=== PATIENT | female | born 1995 | race Caucasian/White ===

== ENCOUNTER → 2017-06-11 | Outpatient (REF) | payer OTHER ==
[~2017-06-11] MED LIST: ANUS2.5C2 TOP; DOCU10CA PO; MOM30SS PO; MOTR200T44 PO; TYLE325T5 PO
== END ==
LOC: M SFHCLERA 20:17
PROVIDERS: ATTEND Nurse Practitioner Family
DX: R10.9 Unspecified abdominal pain (principal)

== ENCOUNTER → 2017-10-11 | Outpatient (REF) | payer OTHER ==
[2017-10-11 21:12] LABS: CHLAMYDIA DNA AMPLIFICATION NEGATIVE (NEGATIVE); GC DNA AMPLIFICATION NEGATIVE (NEGATIVE)
== END ==
LOC: M SFHCLERA 11:59
DX: R30.0 Dysuria (principal)

== ENCOUNTER 2017-10-19 17:10 | Emergency (ER) | payer OTHER ==
[2017-10-19] MEDS ORDERED: CYCLOBENZAPRINE 10 MG TAB PO ×2 (20:30)
[2017-10-19] MEDS: IBUPROFEN 600 MG TAB PO ×2 (20:30)
== END 2017-10-19 20:53 | disposition home or self-care (01) ==
LOC: M ED 17:10
DX: Z04.1 Encounter for examination and observation following transport accident (principal); S23.3XXA Sprain of ligaments of thoracic spine, initial encounter; S33.5XXA Sprain of ligaments of lumbar spine, initial encounter; V47.6XXA Car passenger injured in collision with fixed or stationary object in traffic accident, initial encounter; Y92.410 Unspecified street and highway as the place of occurrence of the external cause; F17.210 Nicotine dependence, cigarettes, uncomplicated
CPT/HCPCS: 72072

== ENCOUNTER → 2017-12-19 | Outpatient (CLI) | payer OTHER ==
[2017-12-19 12:32] LABS: HCG, SERUM QUANTITATIVE 186 MIU/ML
== END ==
LOC: M LAB 11:17
DX: N91.2 Amenorrhea, unspecified (principal)
CPT/HCPCS: 84702

== ENCOUNTER → 2017-12-21 | Outpatient (CLI) | payer OTHER ==
[2017-12-21 12:23] LABS: HCG, SERUM QUANTITATIVE 463 MIU/ML
== END ==
LOC: M LAB 11:37
DX: N91.2 Amenorrhea, unspecified (principal)
CPT/HCPCS: 84702

== ENCOUNTER → 2017-12-31 | Outpatient (CLI) | payer OTHER | LOC: M RAD 15:13 | DX: Z32.01 Encounter for pregnancy test, result positive (principal) | CPT/HCPCS: 76801 ==

== ENCOUNTER → 2018-01-06 | Outpatient (REF) | payer OTHER ==
[2018-01-06 18:11] LABS: AMPHETAMINES URINE REFLEX NEGATIVE (NEGATIVE); BARBITURATES URINE REFLEX NEGATIVE (NEGATIVE); BENZODIAZEPINES URINE REFLEX NEGATIVE (NEGATIVE); CANNABINOIDS URINE REFLEX NEGATIVE (NEGATIVE); COCAINE METABOLITE URINE REFLE NEGATIVE (NEGATIVE); METHADONE URINE REFLEX NEGATIVE (NEGATIVE); OPIATES URINE REFLEX NEGATIVE (NEGATIVE); PHENCYCLIDINE URINE REFLEX NEGATIVE (NEGATIVE)
[2018-01-07 00:10] LABS: CHLAMYDIA DNA AMPLIFICATION NEGATIVE (NEGATIVE); GC DNA AMPLIFICATION NEGATIVE (NEGATIVE)
== END ==
LOC: M SFHCCLAY 10:09
DX: N89.8 Other specified noninflammatory disorders of vagina (principal); F41.9 Anxiety disorder, unspecified; Z12.4 Encounter for screening for malignant neoplasm of cervix
CPT/HCPCS: 80307

== ENCOUNTER → 2018-01-08 | Outpatient (REF) | payer OTHER ==
[2018-01-08 20:26] LABS: AMPHETAMINES URINE REFLEX NEGATIVE (NEGATIVE); BARBITURATES URINE REFLEX NEGATIVE (NEGATIVE); BENZODIAZEPINES URINE REFLEX NEGATIVE (NEGATIVE); CANNABINOIDS URINE REFLEX NEGATIVE (NEGATIVE); COCAINE METABOLITE URINE REFLE NEGATIVE (NEGATIVE); METHADONE URINE REFLEX NEGATIVE (NEGATIVE); OPIATES URINE REFLEX NEGATIVE (NEGATIVE); PHENCYCLIDINE URINE REFLEX NEGATIVE (NEGATIVE)
[2018-01-09 09:15] LABS: CHLAMYDIA DNA AMPLIFICATION NEGATIVE (NEGATIVE); GC DNA AMPLIFICATION NEGATIVE (NEGATIVE)
[2018-01-09 10:37] LABS: HEPATITIS C VIRUS ABY INDEX < 0.0 INDEX (<0.8)
[2018-01-09 10:38] LABS: HEPATITIS B CORE ANTIBODY IGM NEGATIVE (NEGATIVE)
[2018-01-09 10:39] LABS: HIV 1&2 SCREEN CENTAUR NEGATIVE (NEGATIVE)
[2018-01-09 10:40] LABS: HEPATITIS A ANTIBODY IGM NEGATIVE (NEGATIVE)
[2018-01-09 10:48] LABS: HEPATITIS B SURFACE ANTIGEN NEGATIVE (NEGATIVE)
== END ==
LOC: M SFHCCLAY 11:16
DX: N89.8 Other specified noninflammatory disorders of vagina (principal); F41.9 Anxiety disorder, unspecified; Z12.4 Encounter for screening for malignant neoplasm of cervix; Z11.3 Encounter for screening for infections with a predominantly sexual mode of transmission; R30.0 Dysuria; Z3A.01 Less than 8 weeks gestation of pregnancy

== ENCOUNTER 2018-08-07 11:17 | Emergency (ER) | payer OTHER ==
[2018-08-07 11:56] LABS: KETONE, URINE AUTO RFX NEGATIVE (NEGATIVE); LEUKOCYTE ESTERASE UR AUTO RFX NEGATIVE (NEGATIVE); MUCUS, URINE RFX SMALL (NEGATIVE); NITRITE, URINE AUTO RFX NEGATIVE (NEGATIVE); RBC, URINE AUTO RFX 2 /HPF (0-3); SPECIFIC GRAVITY UR AUTO RFX 1.028 (1.002-1.035); SQUAM EPITHELIAL CELL UR AURFX 4 /HPF (0-6); WBC, URINE AUTO RFX 1 /HPF (0-3)
== END 2018-08-07 12:20 | disposition home or self-care (01) ==
LOC: M ED 11:17
DX: Z33.1 Pregnant state, incidental (principal)
CPT/HCPCS: 81001

== ENCOUNTER → 2018-11-16 | Outpatient (CLI) | payer OTHER ==
[~2018-11-16] MED LIST changes: +CYCL10TA PO; +IBUP-1022 PO; +MACR100C43 PO
== END ==
LOC: M LAB 13:13
PROVIDERS: ATTEND Obstetrics & Gynecology
DX: O20.0 Threatened abortion (principal); Z3A.00 Weeks of gestation of pregnancy not specified

== ENCOUNTER → 2018-11-18 | Outpatient (CLI) | payer OTHER | LOC: M LAB 15:42 | PROVIDERS: ATTEND Advanced Practice Midwife | DX: O20.0 Threatened abortion (principal); Z3A.00 Weeks of gestation of pregnancy not specified ==

== ENCOUNTER → 2018-11-24 | Outpatient (CLI) | payer OTHER | LOC: M LAB 13:13 | PROVIDERS: ATTEND Advanced Practice Midwife | DX: O20.0 Threatened abortion (principal); Z3A.00 Weeks of gestation of pregnancy not specified ==

== ENCOUNTER 2018-12-06 12:38 | Emergency (ER) | payer OTHER ==
[~2018-12-06] VITALS: Ht 160 cm; Wt 65.0 kg
[2018-12-06] MEDS ORDERED: PRENTAB55 PO (12:43)
[2018-12-06 13:30] LABS: BASO % 0.3 % (0.0-1.0); EOS # 0.1 10^3/uL (0.0-0.50); EOS % 0.6 % (0.0-3.0); HEMATOCRIT 38.7 % (36.0-47.0); HEMOGLOBIN 13.1 g/dl (12.0-15.5); MEAN CORPUSCULAR HEMOGLOBIN 30.2 pg (27.0-33.0); MEAN CORPUSCULAR HGB CONC 33.9 g/dl (32.0-36.5); MEAN CORPUSCULAR VOLUME 89.2 fl (80.0-96.0); MONO # 0.7 10^3/uL (0.0-0.8); MONO % 7.2 % (0.0-5.0); NEUTROPHILS # 6.7 10^3/uL (1.8-7.7); NEUTROPHILS % 70.7 % (36.0-66.0); PLATELET COUNT, AUTOMATED 313 10^3/uL (150-450); RED BLOOD COUNT 4.34 10^6/uL (4.00-5.40); WHITE BLOOD COUNT 9.5 10^3/uL (4.0-10.0)
[2018-12-06] MEDS ORDERED: NS 1,000 ML IV ONE (13:30)
[2018-12-06 13:56] LABS: BLOOD UREA NITROGEN 7 MG/DL (7-18); CALCIUM LEVEL 8.9 MG/DL (8.5-10.1); CARBON DIOXIDE LEVEL 27 MEQ/L (21-32); CHLORIDE LEVEL 105 MEQ/L (98-107); CREATININE FOR GFR 0.57 MG/DL (0.55-1.30); GLOMERULAR FILTRATION RATE > 60.0 (>60); GLUCOSE, FASTING 82 MG/DL (70-100); HCG, SERUM QUANTITATIVE 57581 MIU/ML; POTASSIUM SERUM 3.9 MEQ/L (3.5-5.1); SODIUM LEVEL 141 MEQ/L (136-145)
--- NOTE | 2018-12-06 14:43 | REP ---
Clinical: Pelvic pain and cramping. Dating and viability. Technique: Transabdominal first trimester obstetrical ultrasound with color Doppler evaluation Findings: Single live early intrauterine is appreciated. Gestational sac with yolk sac and pole identified. [place]-rump length of 1.1 cm corresponds to 7 weeks 1 day gestational age with estimated date of delivery 07/24/2019 . heart rate equals 128 beats per minute. No gross abnormalities are identified. Right corpus luteal cyst identified. Impression: Single live early intrauterine at 7 weeks 1 day gestational age. Complete anatomical assessment should be performed and 19-20 weeks. Electronically Signed by West Nation MD 12/06/2018 02:35 P
[2018-12-06 15:58] LABS: CHLAMYDIA DNA AMPLIFICATION NEGATIVE (NEGATIVE); GC DNA AMPLIFICATION NEGATIVE (NEGATIVE)
[2018-12-06] MEDS ORDERED: PYRI25TA2 PO (16:15)
[2018-12-06 16:22] VITALS: BP 113/56
== END 2018-12-06 16:56 | disposition home or self-care (01) ==
LOC: M ED 12:38
DX: O26.891 Other specified pregnancy related conditions, first trimester (principal); O99.89 Other specified diseases and conditions complicating pregnancy, childbirth and the puerperium; N94.10 Unspecified dyspareunia; Z3A.01 Less than 8 weeks gestation of pregnancy; O09.291 Supervision of pregnancy with other poor reproductive or obstetric history, first trimester; O98.511 Other viral diseases complicating pregnancy, first trimester; O99.331 Smoking (tobacco) complicating pregnancy, first trimester; F17.210 Nicotine dependence, cigarettes, uncomplicated

== ENCOUNTER → 2018-12-21 | Outpatient (CLI) | payer OTHER ==
[~2018-12-21] MED LIST changes: +PRENTAB55 PO; +PYRI25TA2 PO
[2018-12-21 13:41] LABS: BASO % 0.4 % (0.0-1.0); EOS % 0.5 % (0.0-3.0); HEMATOCRIT 36.7 % (36.0-47.0); HEMOGLOBIN 12.2 g/dl (12.0-15.5); LYMPH # 1.6 10^3/uL (1.5-6.5); LYMPH % 19.4 % (24.0-44.0); MEAN CORPUSCULAR HEMOGLOBIN 29.6 pg (27.0-33.0); MEAN CORPUSCULAR HGB CONC 33.2 g/dl (32.0-36.5); MEAN CORPUSCULAR VOLUME 89.1 fl (80.0-96.0); MONO # 0.5 10^3/uL (0.0-0.8); MONO % 5.9 % (0.0-5.0); NEUTROPHILS % 73.6 % (36.0-66.0); PLATELET COUNT, AUTOMATED 262 10^3/uL (150-450); RED BLOOD COUNT 4.12 10^6/uL (4.00-5.40); WHITE BLOOD COUNT 8.1 10^3/uL (4.0-10.0)
[2018-12-21 14:26] LABS: HEPATITIS C VIRUS ABY INDEX 0.1 INDEX (<0.8); HIV 1&2 SCREEN CENTAUR NEGATIVE (NEGATIVE); RUBELLA IgG QUALITATIVE IMMUNE (IMMUNE)
[2018-12-21 14:41] LABS: CHLAMYDIA DNA AMPLIFICATION NEGATIVE (NEGATIVE); GC DNA AMPLIFICATION NEGATIVE (NEGATIVE)
== END ==
LOC: M SMT 10:31
PROVIDERS: ATTEND Advanced Practice Midwife
DX: Z3A.09 9 weeks gestation of pregnancy (principal); Z34.81 Encounter for supervision of other normal pregnancy, first trimester

== ENCOUNTER → 2019-02-23 | Outpatient (CLI) | payer OTHER ==
--- NOTE | 2019-02-23 10:59 | REP ---
OBSTETRIC SONOGRAPHY: HISTORY: Supervision of . For anatomy. FINDINGS: Scanning through the gravid uterus demonstrates a viable single intrauterine gestation in a variable lie. motion is observed and heart rate is recorder 157 beats per minute. An anterior grade 0 placenta is seen without evidence of previa or abruption. Amniotic fluid is subjectively normal. Closed cervical length is 4.6 cm measured transabdominally. No extrauterine abnormalities observed. There has been appropriate interval growth. There are small bilateral choroid plexus cysts. No other anomaly is seen. Left ventricular cardiac outflow tract view and spine are less than optimally seen due to position. The following additional anatomic structures are identified and felt to be unremarkable: cranium, cavum, cerebellum and posterior fossa, face and profile, lungs, four-chamber heart with right ventricular outflow tract view, diaphragm, left-sided stomach, abdominal wall cord insertion, three-vessel cord, kidneys and bladder, upper and lower extremities. Biometry Chart: BPD 3.8 cm = 17 weeks 5 days HC 15.3 cm = 18 weeks 2 days AC 13.0 cm = 18 weeks 4 days FL 2.7 cm = 18 weeks 2 days HL 2.7 cm = 18 weeks 4 days HC/AC ratio normal 1.18. Cephalic index 0.67 (0.70-0.86). Estimated weight 239 grams, 0 pounds 8 ounces, 47th percentile for 18 weeks 3 days. IMPRESSION: Viable single intrauterine gestation at 18 weeks 2 days by today's composite sonographic criteria. Expected gestational age estimate based on prior sonography is 18 weeks 3 days. WILIAM by prior sonography July 24, 2019. left ventricular cardiac outflow tract and spine views less than optimal today due to position. Small bilateral choroid plexus cysts are seen. Electronically Signed by Moose Shen MD 02/23/2019 12:26 P
== END ==
LOC: M RAD 09:16
PROVIDERS: ATTEND Obstetrics & Gynecology
DX: Z34.82 Encounter for supervision of other normal pregnancy, second trimester (principal); Z3A.18 18 weeks gestation of pregnancy

== ENCOUNTER → 2019-03-25 | Outpatient (REF) | payer OTHER ==
[~2019-03-25] MED LIST changes: +ACET1TAB55 PO
== END ==
LOC: M LAB REF 12:49
PROVIDERS: ATTEND Advanced Practice Midwife
DX: Z34.82 Encounter for supervision of other normal pregnancy, second trimester (principal)

== ENCOUNTER → 2019-04-22 | Outpatient (CLI) | payer OTHER ==
[2019-04-22 13:31] LABS: HEMATOCRIT 34.8 % (36.0-47.0); HEMOGLOBIN 11.5 g/dl (12.0-15.5); MEAN CORPUSCULAR HEMOGLOBIN 30.7 pg (27.0-33.0); MEAN CORPUSCULAR VOLUME 92.8 fl (80.0-96.0); PLATELET COUNT, AUTOMATED 272 10^3/uL (150-450); RED BLOOD COUNT 3.75 10^6/uL (4.00-5.40); WHITE BLOOD COUNT 8.6 10^3/uL (4.0-10.0)
== END ==
LOC: M SMT 11:03
PROVIDERS: ATTEND Advanced Practice Midwife
DX: O99.332 Smoking (tobacco) complicating pregnancy, second trimester (principal); Z3A.00 Weeks of gestation of pregnancy not specified

== ENCOUNTER → 2019-06-25 | Outpatient (REF) | payer OTHER | LOC: M LAB REF 16:52 | PROVIDERS: ATTEND Advanced Practice Midwife | DX: Z36.85 Encounter for antenatal screening for Streptococcus B (principal); O99.333 Smoking (tobacco) complicating pregnancy, third trimester ==

== ENCOUNTER → 2019-06-25 | Outpatient (CLI) | payer OTHER | LOC: M SMT 14:31 | PROVIDERS: ATTEND Advanced Practice Midwife | DX: O99.333 Smoking (tobacco) complicating pregnancy, third trimester (principal) ==

== ENCOUNTER 2019-07-13 18:11 | Outpatient (CLI) | payer OTHER ==
[~2019-07-13] VITALS: Ht 162.6 cm; Wt 66.2 kg
[2019-07-13 18:22] VITALS: BP 119/70
== END 2019-07-13 19:22 | disposition home or self-care (01) ==
LOC: M LDO 18:11
PROVIDERS: ATTEND Obstetrics & Gynecology
DX: O36.8130 Decreased fetal movements, third trimester, not applicable or unspecified (principal); Z3A.38 38 weeks gestation of pregnancy

== ENCOUNTER 2019-07-16 22:21 | Outpatient (CLI) | payer OTHER ==
[~2019-07-16] VITALS: Ht 162.6 cm; Wt 68.0 kg
[2019-07-16 22:37] VITALS: BP 125/67
[2019-07-17 00:04] VITALS: BP 136/80
[2019-07-17 00:43] VITALS: BP 129/80
--- NOTE | 2019-07-17 00:46 | IPNPDOC ---
Text Note Date of Service The patient was seen on 07/17/19. NOTE Outpatient 24yo WILIAM 07/24/19. Presents @ 38w6d with complaints of UC since office appt today. Denies LOF or bleeding. Fetus is active NAD UC irregular, mild FH Cat I Cervix remained unchanged 380/-1 over 2 hours, similar to earlier office exam Discharged home. Routine precautions. Keep next appt VS,Fishbone, I+O VS, Fishbone, I+O Vital Signs Date Time Temp Pulse Resp B/P (MAP) Pulse Ox O2 Delivery O2 Flow Rate FiO2 07/16/19 22:37 98.6 86 125/67 (86) Chary Vergara CNM Jul 17, 2019 00:46
[2019-07-17] MEDS ORDERED: ACETAMINOPHEN 500 MG TAB PO ONE (01:00)
[2019-07-17 01:28] LABS: AMPHETAMINES URINE REFLEX NEGATIVE (NEGATIVE); BARBITURATES URINE REFLEX NEGATIVE (NEGATIVE); BENZODIAZEPINES URINE REFLEX NEGATIVE (NEGATIVE); CANNABINOIDS URINE REFLEX NEGATIVE (NEGATIVE); COCAINE METABOLITE URINE REFLE NEGATIVE (NEGATIVE); METHADONE URINE REFLEX NEGATIVE (NEGATIVE)
[2019-07-17 01:29] LABS: OPIATES URINE REFLEX NEGATIVE (NEGATIVE); PHENCYCLIDINE URINE REFLEX NEGATIVE (NEGATIVE)
[2019-07-18] MEDS ORDERED: IBUP80TA PO (08:57)
[2019-07-18] MEDS ORDERED: ACET-683 PO (08:57)
== END 2019-07-17 01:05 | disposition home or self-care (01) ==
LOC: M LDO 22:21
PROVIDERS: ATTEND Advanced Practice Midwife
DX: O47.1 False labor at or after 37 completed weeks of gestation (principal); Z3A.38 38 weeks gestation of pregnancy

== ENCOUNTER 2019-07-17 10:23 | Inpatient (IN) | payer OTHER ==
[~2019-07-17] VITALS: Ht 160 cm; Wt 68.0 kg
[2019-07-17] VITALS (7 sets, daily range): BP systolic 112–136; BP diastolic 58–78
[2019-07-17] MEDS ORDERED: LR 1,000 ML IV SCH (10:38)
[2019-07-17] MEDS ORDERED: LACTATED RINGER'S 1000 ML IV STA (10:38)
[2019-07-17] MEDS ORDERED: OXYTOCIN 30 UNITS IN 0.9% NaCl 500ML IV BAG (J2590) As Ordered ONE (10:47)
[2019-07-17 11:24] LABS: HEMATOCRIT 37.7 % (36.0-47.0); HEMOGLOBIN 12.3 g/dl (12.0-15.5); MEAN CORPUSCULAR HEMOGLOBIN 30.3 pg (27.0-33.0); MEAN CORPUSCULAR HGB CONC 32.6 g/dl (32.0-36.5); MEAN CORPUSCULAR VOLUME 92.9 fl (80.0-96.0); PLATELET COUNT, AUTOMATED 279 10^3/uL (150-450); RED BLOOD COUNT 4.06 10^6/uL (4.00-5.40); WHITE BLOOD COUNT 15.8 10^3/uL (4.0-10.0)
[2019-07-17] MEDS ORDERED: OXYTOCIN DRIP 30 UNITS in IV 1 EA IV SCH (11:37)
[2019-07-17] MEDS ORDERED: ANUSOL HC CREAM 30GM TOP PRN (11:45)
[2019-07-17] MEDS ORDERED: RHOGAM 300 MCG (1500 IU) INJ (J2790) IM SCH (11:45)
[2019-07-17] MEDS ORDERED: ACETAMINOPHEN TAB 650MG DOSE (2X325MG) PO PRN (11:45)
[2019-07-17] MEDS ORDERED: MOM 30ML SUSPENSION UDC PO PRN (11:45)
[2019-07-17] MEDS ORDERED: DIBUCAINE 1% OINTMENT 30GM TOP PRN (11:45)
[2019-07-17] MEDS ORDERED: IBUPROFEN 600 MG TAB PO PRN (11:45)
[2019-07-17] MEDS ORDERED: METHYLERGONOVINE MALEATE 0.2 MG TAB PO PRN (11:45)
[2019-07-17] MEDS ORDERED: DOCUSATE SODIUM 100 MG CAP PO PRN (11:45)
[2019-07-17] MEDS ORDERED: MEASLES,MUMPS,RUBELLA VACCINE INJ (MMR-II) (90707) SC SCH (11:45)
--- NOTE | 2019-07-17 11:51 | HPEPDOC ---
Obstetrical History & Physical General Date of Admission Jul 17, 2019 at 10:35 History of Present Illness Chief Complaint: Contractions, term, LOF, term Information Provided By: Patient Age: 24 : 5 Term: 2 Pre-term: 0 Abortions: 2 Livin Care Care: Good Care Dating Final EDC: Jul 24, 2019 Final EDC by: LMP EGA at Admission: 39 Antepartum Course Height (inches): 64 Pre- weight (lbs.): 140 Admission Weight (lbs.): 150 Past Medical History Past Obstetrical History #1: Past Obstetrical History: Primgravida (2013) Type of Delivery: Spontaneous Vaginal Del. Sex of : Female (7#5) Complications: No Past Obstetrical History #2: Past Obstetrical History: Multigravida (2015) Type of Delivery: Spontaneous Vaginal Del. 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 , Theraputic Past Medical History Surgical History: Appendectomy Family History Significant Family History: Diabetes, Hypertension Social History Marital Status: Family situation: Spouse/partner home * Smoker: current smoker (1/2 ppd) Alcohol: Denies Drugs: denies Abuse Violence Screening Have you been hit/kicked/slapp: No Have you been sexually assault: No Imunizations Influenza Status: declined Allergies Coded Allergies: No Known Allergies (Unverified , 08/07/18) Medications Scheduled [id number]/Iron Fum/Folic/Docusate ( 19 Tablet) 1 Tab Tab, 1 TAB PO DAILY Physical Examination Physical Examination GENERAL: Alert and oriented times three. BREAST: . ABDOMEN: Gravid and non-tender to touch. FETUS: Is vertex (VTX) by sterile vaginal examination (SVE), fetus is vertex (VTX) by Memo. HEART RATE: Regular rate and rhythm. LUNGS: Clear to auscultation (CTA). EXTREMITIES: No edema. No clonus. Deep tendon reflexes (DTRs) + 2. Vital Signs/I&O Vital Signs Date Time Temp Pulse Resp B/P (MAP) Pulse Ox O2 Delivery O2 Flow Rate FiO2 07/17/19 10:27 97.9 93 20 136/78 (97) Laboratory Data 24H LABS Laboratory Tests 2 07/17/19 10:43: Nucleated Red Blood Cells % (auto) 0.0 07/17/19 10:52: Serology Scanned Report Hepatitis B Testing CBC/BMP Laboratory Tests 07/17/19 10:43 Pertinent Laboratoy Data Blood Type: A+ RBC Antibody Screen: Negative HIV: Negative Hepatitis B: Negative Hepatitis C: Negative Rapid Plasma Reagin: Nonreactive Rubella: Immune Chlamydia/Gonorrhea: Negative Group B Streptococcus: Negative Quad Screen Test: Declined Glucose Tolerance Test: 115 Anatomy Ultrasound Ultrasound Date: Feb 23, 2019 Placenta Location: Anterior Normal Anatomy: Yes Placenta Previa: No Estimated Weight (grams): 239 (47%) Other Ultrasounds 12/06/18 ED 7w1d WILIAM 07/24/19 03/30/19 f/u 566gm, 37% Steroid Therapy Steroid Therapy: No Vaginal Examination Dilation: 6 cm (per nursing) Assessment Heart Rate (FHR): 135 Variability: Moderate Accelerations: Positive Tocometer Contractions: Yes Frequency: regular, every 2-5 min. Duration: greater than 60 seconds Assessment/Plan Assessment Jaquelin is a 24-year-old (G)5 para (P)2-0-2-2 at 39+0 weeks by 7-week ultrasound. Presents to Labor and Delivery (L&D) in active labor. Reports SROM clear fluid 1000. Plan Admit and orient. Applications Support Lead and consent. Diet: clear. Group B Streptococcus (GBS) negative. Labs and intravenous (IV) per unit protocol. Counseled on Pitocin and induction of labor (IOL). Lactated Ringers (LR): Bolus 500 mL, then saline lock. Anticipate normal spontaneous delivery (). C-S as appropriate. Chary Vergara CNM Jul 17, 2019 11:51
--- NOTE | 2019-07-17 11:57 | DNPDOC ---
[facility] Delivery Note Delivery Note DATE OF DELIVERY: 07/17/19 PREDELIVERY DIAGNOSIS: 39-0/7 weeks' gestation and labor. POST DELIVERY DIAGNOSIS: Delivered. PROCEDURE: Spontaneous vaginal delivery. PROVIDER: Chary Vergara CNM ANESTHESIA: None. ESTIMATED BLOOD LOSS: 200 mL. FINDINGS: 7 pound 6 ounce, 3350gm male , Score 9/9, no nuchal cord. DELIVERY SUMMARY: Patient is a 24-year-old 5 now para 3-0-2-3 who was admitted to labor and delivery for active labor. She reports waking with contractions at 0800 followed by SROM clear fluid 1000. Upon admission, nursing exam was 6cm. She progressed regularly. FD 1116. Viable male delivered TIFFANY without difficulty @ 1117. Spontaneous respirations, transitioned on maternal abdomen. Cord doubly clamped and cut by FOB once pulsations ceased. Apgars 9/9. Placenta fernández, intact with 3v cord @ 1124. Fundus firmed with massage and IV pitocin bolus. EBL 200ml. Cervix, vagina and perineum intact. Sponge sharp and instrument count correct. Chary Vergara CNM Jul 17, 2019 11:57
[2019-07-17] MEDS ORDERED: SLF 3 ML SYR IV PRN (13:00)
[2019-07-17] MEDS: SLF 3 ML SYR IV SCH ×2 (14:00→22:00)
[2019-07-17] MEDS: IBUPROFEN 800 MG TAB PO PRN (17:41)
[2019-07-17] MEDS: ACETAMINOPHEN 500 MG TAB PO PRN (20:49)
[2019-07-18] MEDS: IBUPROFEN 800 MG TAB PO PRN ×2 (02:12→15:28)
[2019-07-18 06:00] VITALS: BP 119/64
[2019-07-18] MEDS: SLF 3 ML SYR IV SCH ×2 (06:00→14:00)
[2019-07-18] MEDS: ACETAMINOPHEN 500 MG TAB PO PRN (08:01)
[2019-07-18] MEDS ORDERED: ACET-683 PO (08:57)
[2019-07-18] MEDS ORDERED: IBUP80TA PO (08:57)
[2019-07-18] MEDS ORDERED: PRENATAL VITAMINS CHEWABLE TABLET PO SCH ×2 (09:00)
[2019-07-18] MEDS ORDERED: ADACEL/BOOSTRIX VACCINE (DIPHTH/PERTUSS/ACELL/TETANUS)0.5ML SYR (90715) IM ONE (17:45)
[2019-07-18 18:00] VITALS: BP 116/69
== END 2019-07-18 20:40 | disposition home or self-care (01) | DRG 560 ==
LOC: M LDO 10:23 → M LDI 10:35 → M OBS 14:49
PROVIDERS: ADMIT Advanced Practice Midwife; ATTEND Advanced Practice Midwife
PROC: 10E0XZZ Delivery of Products of Conception, External Approach (ICD-10-PCS; principal; 2019-07-17)
DX: O99.334 Smoking (tobacco) complicating childbirth (principal); F17.210 Nicotine dependence, cigarettes, uncomplicated; Z3A.39 39 weeks gestation of pregnancy; Z37.0 Single live birth

== ENCOUNTER → 2021-12-18 | Outpatient (CLI) | payer OTHER ==
[~2021-12-18] MED LIST changes: +ACET-683 PO; +CYCL-707 PO; -CYCL10TA PO; +IBUP80TA PO
== END ==
LOC: M PLALAB 09:35
PROVIDERS: ATTEND Obstetrics & Gynecology
DX: Z34.81 Encounter for supervision of other normal pregnancy, first trimester (principal); Z36.89 Encounter for other specified antenatal screening

== ENCOUNTER → 2022-02-07 | Outpatient (CLI) | payer OTHER | LOC: M WHC 12:54 | PROVIDERS: ATTEND Advanced Practice Midwife | DX: O32.1XX0 Maternal care for breech presentation, not applicable or unspecified (principal); Z3A.19 19 weeks gestation of pregnancy ==

== ENCOUNTER → 2022-03-28 | Outpatient (CLI) | payer OTHER | LOC: M WHC 09:50 | PROVIDERS: ATTEND Specialist | DX: Z34.82 Encounter for supervision of other normal pregnancy, second trimester (principal); Z36.2 Encounter for other antenatal screening follow-up; Z3A.26 26 weeks gestation of pregnancy ==

== ENCOUNTER → 2022-06-03 | Outpatient (CLI) | payer OTHER | LOC: M WHC 12:39 | PROVIDERS: ATTEND Advanced Practice Midwife | DX: Z36.2 Encounter for other antenatal screening follow-up (principal); O26.843 Uterine size-date discrepancy, third trimester; Z3A.35 35 weeks gestation of pregnancy ==

== ENCOUNTER → 2022-06-07 | Outpatient (REF) | payer OTHER, MEDICAID | LOC: M SFHCWAGY 15:04 | PROVIDERS: ATTEND Advanced Practice Midwife | DX: Z34.93 Encounter for supervision of normal pregnancy, unspecified, third trimester (principal); Z36.85 Encounter for antenatal screening for Streptococcus B ==

== ENCOUNTER 2024-02-21 20:04 | Inpatient (IN) | payer MEDICAID, OTHER ==
[~2024-02-21] VITALS: Ht 167.6 cm; Wt 56.0 kg
[~2024-02-21 20:04] MED LIST changes: +METH10CO3 PO
[2024-02-21] MEDS: NS 1,000 ML IV ONE (20:10)
[2024-02-21 20:29] LABS: BASO % 0.3 % (0.0-1.0); EOS # 0.1 10^3/uL (0.0-0.5); EOS % 1.7 % (0.0-3.0); HEMATOCRIT 39.9 % (36.0-47.0); HEMOGLOBIN 13.7 g/dl (12.0-15.5); LYMPH # 1.9 10^3/uL (1.5-5.0); LYMPH % 24.6 % (24.0-44.0); MEAN CORPUSCULAR HEMOGLOBIN 28.8 pg (27.0-33.0); MEAN CORPUSCULAR HGB CONC 34.3 g/dl (32.0-36.5); MEAN CORPUSCULAR VOLUME 83.8 fl (80.0-96.0); MONO # 0.7 10^3/uL (0.0-0.8); MONO % 9.6 % (2.0-8.0); NEUTROPHILS # 4.8 10^3/uL (1.5-8.5); NEUTROPHILS % 63.5 % (36.0-66.0); PLATELET COUNT, AUTOMATED 313 10^3/uL (150-450); RED BLOOD COUNT 4.76 10^6/uL (4.00-5.40); WHITE BLOOD COUNT 7.6 10^3/uL (4.0-10.0)
[2024-02-21] MEDS: LORazepam 2 MG/ML 1ML VIAL IV STA ×2 (20:42→22:11)
[2024-02-21 20:57] LABS: ETHYL ALCOHOL (ETHANOL) 0.004 % (0.000-0.010)
[2024-02-21 20:59] LABS: ALKALINE PHOSPHATASE 90 U/L (46-116); ALT/SGPT 24 U/L (7.0-40); AST/SGOT 22 U/L (<34); BILIRUBIN,DIRECT 0.1 MG/DL (<0.4); BILIRUBIN,TOTAL 0.4 MG/DL (0.3-1.2); BLOOD UREA NITROGEN 15 MG/DL (9-23); CALCIUM LEVEL 9.1 MG/DL (8.5-10.1); CARBON DIOXIDE LEVEL 26 MMOL/L (20-31); CHLORIDE LEVEL 110 MMOL/L (98-107); CREATININE FOR GFR 0.61 MG/DL (0.55-1.30); GLOMERULAR FILTRATION RATE > 60.0 (>60); GLUCOSE, FASTING 107 MG/DL (60-100); POTASSIUM SERUM 4.2 MMOL/L (3.5-5.1); SALICYLATE LEVEL < 3.0 MG/DL (<30); SODIUM LEVEL 145 MMOL/L (136-145); TOTAL PROTEIN 7.3 G/DL (5.7-8.2)
[2024-02-21 21:01] LABS: THYROID STIMULATING HORMONE 0.397 uIU/ML (0.55-4.78)
[2024-02-21 21:02] LABS: CPK CREATINE PHOSPHOKINASE 264 U/L (34-145)
[2024-02-21 21:20] LABS: BARBITURATES URINE NEGATIVE (NEGATIVE)
[2024-02-21 21:21] LABS: BENZODIAZEPINES URINE NEGATIVE (NEGATIVE); CANNABINOIDS URINE NEGATIVE (NEGATIVE); COCAINE METABOLITE URINE NEGATIVE (NEGATIVE); METHADONE URINE NEGATIVE (NEGATIVE); OPIATES URINE NEGATIVE (NEGATIVE); PHENCYCLIDINE URINE NEGATIVE (NEGATIVE)
[2024-02-21 21:23] LABS: AMPHETAMINES LEVEL URINE POSITIVE (NEGATIVE)
[2024-02-22 00:36] LABS: HCG, SERUM QUALITATIVE NEGATIVE (NEGATIVE)
[2024-02-22] MEDS: LORazepam 2 MG/ML 1ML VIAL IV STA (08:17)
[2024-02-22] MEDS: NICOTINE 21MG/24HR 1 EA TRANSDERMAL TD ONE (10:20)
[2024-02-22] MEDS ORDERED: HALOPERIDOL LACTATE 5MG/ML VIAL As Ordered ONE (19:26)
[2024-02-22] MEDS: LORazepam 2 MG/ML 1ML VIAL IM ONE (19:36)
[2024-02-22] MEDS: HALOPERIDOL LACTATE 5MG/ML VIAL IM ONE (19:37)
[2024-02-22] MEDS: diphenhydrAMINE 50MG/ML VIAL IM ONE (19:37)
[2024-02-22] MEDS ORDERED: MED REC CURRENTLY UNOBTAINABLE XX SCH (21:45)
[2024-02-23] MEDS ORDERED: HOME MED LIST COMPLETE! XX SCH (07:40)
[2024-02-23] MEDS ORDERED: ACETAMINOPHEN TAB 650MG DOSE (2X325MG) PO PRN (13:45)
[2024-02-23] MEDS ORDERED: IBUPROFEN 400MG TAB PO PRN (13:45)
[2024-02-23] MEDS ORDERED: MAALOX 30 ML SUSP *UDC PO PRN (13:45)
[2024-02-23] MEDS ORDERED: LORazepam 2 MG TAB PO PRN (13:45)
[2024-02-23] MEDS ORDERED: OLANZapine 5 MG TAB PO PRN (13:45)
[2024-02-23] MEDS ORDERED: MOM 30ML SUSPENSION UDC PO PRN (13:45)
[2024-02-23 15:57] VITALS: BP 114/81
[2024-02-23] MEDS: NICOTINE 21MG/24HR 1 EA TRANSDERMAL TD SCH (16:35)
[2024-02-23] MEDS: FOLIC ACID 1MG TAB PO SCH (17:12)
[2024-02-23] MEDS: THIAMINE 100 MG TAB PO SCH (17:12)
[2024-02-23] MEDS: MULTIVITAMINS/MINERALS THERAP 1 TAB PO SCH (17:12)
[2024-02-23] MEDS: traZODone 50 MG TAB PO PRN (21:27)
[2024-02-23 23:46] VITALS: BP 115/82
[2024-02-24] MEDS: diphenhydrAMINE 25MG CAP PO PRN (09:24)
[2024-02-24 18:17] VITALS: BP 116/85; TEMP 98.6
[2024-02-25] VITALS (10 sets, daily range): BP systolic 123–139; BP diastolic 76–91; TEMP 97.1–99.2; O2SAT 97–100
[2024-02-25 07:23] LABS: CHOLESTEROL RISK RATIO 3.36 (<5); HDL CHOLESTEROL 46.4 MG/DL (>40); NON-HDL-C 109.6 MG/DL
[2024-02-25] MEDS ORDERED: OLANZapine 2.5MG TABLET PO PRN (09:40)
[2024-02-25] MEDS: LORazepam 1 MG TAB PO SCH (10:46)
[2024-02-25] MEDS: chlorproMAZINE INJ 50MG/2ML AMP IM STA (11:30)
[2024-02-25] MEDS ORDERED: LORazepam 1 MG TAB PO SCH (16:00)
[2024-02-26 06:23] VITALS: BP 124/67; TEMP 99.4; O2SAT 100
== END 2024-02-26 14:05 | disposition short-term general hospital (02) | DRG 776 ==
LOC: M ED 20:04 → EDBD 20:04 → M ED INP 02-23 13:43 → M PSY 02-23 15:51
PROVIDERS: ADMIT Student in an Organized Health Care Education/Training Program; ATTEND Student in an Organized Health Care Education/Training Program
DX: F15.150 Other stimulant abuse with stimulant-induced psychotic disorder with delusions (principal); Z78.1 Physical restraint status; Z62.810 Personal history of physical and sexual abuse in childhood; F41.9 Anxiety disorder, unspecified; Z87.891 Personal history of nicotine dependence; R00.8 Other abnormalities of heart beat

== ENCOUNTER 2024-02-26 12:41 | Observation (INO) | payer MEDICAID, OTHER ==
[2024-02-26 14:00] VITALS: BP 101/59; TEMP 97.4; O2SAT 98
[2024-02-26] MEDS ORDERED: HOME MED LIST COMPLETE! XX SCH (14:20)
[2024-02-26 14:40] LABS: HEMATOCRIT 45.4 % (36.0-47.0); HEMOGLOBIN 15.4 g/dl (12.0-15.5); MEAN CORPUSCULAR HEMOGLOBIN 28.2 pg (27.0-33.0); MEAN CORPUSCULAR HGB CONC 33.9 g/dl (32.0-36.5); PLATELET COUNT, AUTOMATED 308 10^3/uL (150-450); RED BLOOD COUNT 5.47 10^6/uL (4.00-5.40); WHITE BLOOD COUNT 8.2 10^3/uL (4.0-10.0)
[2024-02-26 15:12] LABS: BLOOD UREA NITROGEN 17 MG/DL (9-23); CALCIUM LEVEL 9.4 MG/DL (8.5-10.1); CARBON DIOXIDE LEVEL 28 MMOL/L (20-31); CHLORIDE LEVEL 103 MMOL/L (98-107); CREATININE FOR GFR 0.61 MG/DL (0.55-1.30); GLOMERULAR FILTRATION RATE > 60.0 (>60); GLUCOSE, FASTING 123 MG/DL (60-100); SODIUM LEVEL 138 MMOL/L (136-145)
[2024-02-26] MEDS: OLANZapine INTRAMUSCULAR 10MG VIAL IM ONE (15:49)
[2024-02-26] MEDS ORDERED: NS 1,000 ML IV SCH (16:00)
[2024-02-26 16:04] VITALS: BP 119/78; TEMP 96.5; O2SAT 98
[2024-02-26 16:11] VITALS: BP 162/72; TEMP 97.5; O2SAT 96
[2024-02-26] MEDS: NS 1,000 ML IV ONE ×2 (17:37→18:17)
[2024-02-26 20:00] VITALS: BP 134/71; TEMP 97.5; O2SAT 96
[2024-02-27] VITALS: BP 129/73; TEMP 98.1; O2SAT 98
[2024-02-27] MEDS: OLANZapine INTRAMUSCULAR 10MG VIAL IM ONE ×2 (02:17→03:34)
[2024-02-27] MEDS: diphenhydrAMINE 25MG CAP PO ONE (03:26)
[2024-02-27 04:00] VITALS: BP 132/91; TEMP 97.3; O2SAT 100
[2024-02-27] MEDS: LORazepam 2 MG/ML 1ML VIAL IV STA ×2 (04:13→04:49)
[2024-02-27 08:42] VITALS: BP 136/84; TEMP 97.5; O2SAT 100
[2024-02-27] MEDS: ENOXAPARIN 40MG/0.4ML SYRINGE (J1650 PER 10MG) SC SCH (09:00)
[2024-02-27 09:25] LABS: BLOOD UREA NITROGEN 9 MG/DL (9-23); CALCIUM LEVEL 8.9 MG/DL (8.5-10.1); CARBON DIOXIDE LEVEL 26 MMOL/L (20-31); CHLORIDE LEVEL 112 MMOL/L (98-107); CREATININE FOR GFR 0.54 MG/DL (0.55-1.30); GLOMERULAR FILTRATION RATE > 60.0 (>60); GLUCOSE, FASTING 89 MG/DL (60-100); POTASSIUM SERUM 4.3 MMOL/L (3.5-5.1); SODIUM LEVEL 142 MMOL/L (136-145)
[2024-02-27 09:28] LABS: HEMATOCRIT 40.1 % (36.0-47.0); MEAN CORPUSCULAR HEMOGLOBIN 28.2 pg (27.0-33.0); MEAN CORPUSCULAR HGB CONC 33.2 g/dl (32.0-36.5); MEAN CORPUSCULAR VOLUME 85.1 fl (80.0-96.0); PLATELET COUNT, AUTOMATED 260 10^3/uL (150-450); RED BLOOD COUNT 4.71 10^6/uL (4.00-5.40); WHITE BLOOD COUNT 5.6 10^3/uL (4.0-10.0)
[2024-02-27 09:44] LABS: HEMOGLOBIN 13.3 g/dl (12.0-15.5)
== END 2024-02-27 11:14 | disposition left against medical advice (07) ==
LOC: M PCU 13:39
PROVIDERS: ADMIT Internal Medicine; ATTEND Internal Medicine
DX: R00.0 Tachycardia, unspecified (principal); Z53.8 Procedure and treatment not carried out for other reasons; F29 Unspecified psychosis not due to a substance or known physiological condition; F19.10 Other psychoactive substance abuse, uncomplicated
CPT/HCPCS: 36415; 80048; 81001; 84439; 85027; 87086; 96372; 96374; 96376; J2060; J2359

== ENCOUNTER 2024-02-27 11:16 | Inpatient (IN) | payer MEDICAID, OTHER ==
[~2024-02-27] VITALS: Ht 162.6 cm; Wt 54.4 kg
[2024-02-27] MEDS ORDERED: HOME MED LIST COMPLETE! XX SCH (11:55)
[2024-02-27] MEDS ORDERED: IBUPROFEN 400MG TAB PO PRN (12:50)
[2024-02-27] MEDS ORDERED: MAALOX 30 ML SUSP *UDC PO PRN (12:50)
[2024-02-27] MEDS ORDERED: MOM 30ML SUSPENSION UDC PO PRN (12:50)
[2024-02-27] MEDS ORDERED: LORazepam 2 MG TAB PO PRN (12:50)
[2024-02-27] MEDS: THIAMINE 100 MG TAB PO SCH (14:16)
[2024-02-27] MEDS: FOLIC ACID 1MG TAB PO SCH (14:16)
[2024-02-27] MEDS: NICOTINE 14 MG/24 HR TRANSDERMAL TD SCH (14:16)
[2024-02-27] MEDS: MULTIVITAMINS/MINERALS THERAP 1 TAB PO SCH (14:17)
[2024-02-27] MEDS: ACETAMINOPHEN TAB 650MG DOSE (2X325MG) PO PRN (23:49)
[2024-02-28] MEDS: traZODone 50 MG TAB PO PRN
[2024-02-28 06:00] VITALS: BP 122/77
[2024-02-28 06:25] VITALS: BP 122/77; TEMP 98.3; O2SAT 97
[2024-02-28 15:03] VITALS: BP 130/76
[2024-02-28 15:04] VITALS: BP 130/76; TEMP 98.2; O2SAT 98
[2024-02-29 06:11] VITALS: BP 127/68; TEMP 98.6; O2SAT 95
[2024-02-29] MEDS: OLANZapine 5 MG TAB PO SCH (08:11)
[2024-02-29] MEDS: VITAMIN D 1,000 INTERNATIONAL UNITS TABLET PO SCH (08:11)
[2024-02-29] MEDS: NICOTINE POLACRILEX 2 MG GUM PO PRN (09:58)
[2024-02-29 15:18] VITALS: BP 122/85; TEMP 98.6; O2SAT 97
[2024-03-01 03:25] LABS: Trichomonas vaginalis (AMP) POSITIVE (NEGATIVE)
[2024-03-01 03:54] LABS: GC DNA AMPLIFICATION NEGATIVE (NEGATIVE)
[2024-03-01 17:49] VITALS: BP 122/75; TEMP 98.4; O2SAT 97
[2024-03-01] MEDS: rOPINIRole 0.25 MG TAB(REQUIP) PO PRN (18:35)
[2024-03-02 06:10] VITALS: BP 114/68; TEMP 99.1; O2SAT 95
[2024-03-02] MEDS ORDERED: NICO2GUM PO (09:57)
[2024-03-02] MEDS ORDERED: TRAZ-252 PO (09:57)
[2024-03-02] MEDS ORDERED: VITAD1000T PO (09:57)
[2024-03-02] MEDS ORDERED: HALO5TAB33 PO (09:57)
[2024-03-02] MEDS ORDERED: OLAN1TAB16 PO (09:57)
[2024-03-02] MEDS ORDERED: ROPI25TA PO (09:57)
[2024-03-02] MEDS ORDERED: NICO4GUM43 MT (10:35)
== END 2024-03-02 11:34 | disposition home or self-care (01) | DRG 776 ==
LOC: M ED 11:16 → M ED INP 12:48 → M PSY 14:00
PROVIDERS: ADMIT Student in an Organized Health Care Education/Training Program; ATTEND Student in an Organized Health Care Education/Training Program
DX: F15.959 Other stimulant use, unspecified with stimulant-induced psychotic disorder, unspecified (principal); R00.0 Tachycardia, unspecified; Z79.899 Other long term (current) drug therapy

== ENCOUNTER → 2024-05-20 | Outpatient (CLI) | payer MEDICAID ==
[~2024-05-20] MED LIST changes: +HALO5TAB33 PO; +NICO2GUM PO; +NICO4GUM43 MT; +OLAN1TAB16 PO; +ROPI25TA PO; +TRAZ-252 PO; +VITAD1000T PO
== END ==
LOC: M OUTALCOH 07:59
PROVIDERS: ATTEND Psychiatry & Neurology Psychiatry
DX: F11.20 Opioid dependence, uncomplicated (principal); F15.20 Other stimulant dependence, uncomplicated; Z72.0 Tobacco use

== ENCOUNTER → 2024-06-07 | Outpatient (RCR) | payer MEDICAID | LOC: M OUTALCOH 05-26 15:41 | PROVIDERS: ATTEND Psychiatry & Neurology Psychiatry | DX: F11.20 Opioid dependence, uncomplicated (principal); F15.20 Other stimulant dependence, uncomplicated; Z72.0 Tobacco use ==